=== PATIENT | female | born 1950 | race Caucasian/White ===

== ENCOUNTER 2021-04-04 15:15 | Emergency (ER) | payer MEDICARE, BC ==
[2021-04-04] MEDS ORDERED: Sodium Chloride 0.9% 10 ML Syringe FLUSH PRN (15:29)
--- NOTE | 2021-04-04 16:02 | CR ---
Chest: Portable view of the chest was obtained. Comparison: No prior chest imaging is available. Slight increased density is seen within both upper lungs. Uncertain if this is due to actual parenchymal change or is related to technique. Lungs otherwise are clear. Heart size and mediastinum are normal. Slight degenerative change is seen within the spine. Impression: 1. Questionable density within both upper lungs versus artifact from technique. 2. Portable chest x-ray shows nothing else acute. Diagnostic code #2
--- NOTE | 2021-04-04 16:24 | EDM.PDOC ---
ED HPI GENERAL MEDICAL PROBLEM - General Chief Complaint: Syncope Stated Complaint: NAUSEA DIZZY Time Seen by Provider: 04/04/21 15:27 Source of Information: Reports: Patient, Family History Limitations: Reports: No Limitations - History of Present Illness INITIAL COMMENTS - FREE TEXT/NARRATIVE: 70-year-old female presents the emergency department today with complaints of decreased appetite, nausea, increased fatigue and dizziness that started about a week and a half ago. Patient states that yesterday, however, she was standing in the kitchen after she had just woken up and had a syncopal episode. Her was there to witness and she denies hitting her head. She then again this morning shortly after woke up had a similar incident in the kitchen when standing by the counter. She denies any chest pain or diaphoresis associated with the syncopal episodes. Patient also states that she did have an episode of diarrhea stool today. She denies fever however has had the chills. She denies shortness of breath however states she does have a cough. However she makes note that cough is due to "allergies". She denies any abdominal pain or urinary symptoms. Patient does not take any prescription medications and does not have a history of smoking. She has not had her Covid vaccine. O2 saturations are 92% on room air. - Related Data Allergies Allergy/AdvReac Type Severity Reaction Status Date / Time No Known Allergies Allergy Verified 04/04/21 15:30 Past Medical History HEENT History: Reports: Impaired Vision Other HEENT History: wears eyeglasses. [employer]CH[employer]ICIAN History: Reports: Musculoskeletal History: Reports: Fracture - Infectious Disease History Infectious Disease History: Reports: Chicken Pox, Mumps - Past Surgical History Other Musculoskeletal Surgeries/Procedures:: fusion of C6, C7. Social & Family History - Tobacco Use Tobacco Use Status *Q: Never Tobacco User Second Hand Smoke Exposure: No - Caffeine Use Caffeine Use: Reports: Coffee - Alcohol Use Days Per Week of Alcohol Use: 3 Number of Drinks Per Day: 1 Total Drinks Per Week: 3 - Recreational Drug Use Recreational Drug Use: No ED ROS GENERAL - Review of Systems Review Of Systems: Comprehensive ROS is negative, except as noted in HPI. - Physical Exam Exam: See Below Exam Limited By: No Limitations General Appearance: Alert, WD/WN, No Apparent Distress Ears: Normal External Exam, Hearing Grossly Normal Nose: Normal Inspection Throat/Mouth: Normal Inspection, Normal Lips, Normal Voice, No Airway Compromise Head Exam: Atraumatic, Normocephalic Neck: Normal Inspection, Supple Respiratory/Chest: No Respiratory Distress, No Accessory Muscle Use, Chest Non- Tender (Lateral upper lobes), Crackles Cardiovascular: Normal Peripheral Pulses, Regular Rate, Rhythm, No Edema GI/Abdominal: Normal Bowel Sounds, Soft, Non-Tender, No Distention (Female) Exam: Deferred Rectal (Female) Exam: Deferred Neuro Exam (Abbreviated): Alert, Oriented, Normal Cognition Back Exam: Normal Inspection Extremities: Normal Inspection, Normal Range of Motion, Non-Tender, No Pedal Edema, Normal Capillary Refill Psychiatric: Normal Affect, Normal Mood Skin Exam: Warm, Dry, Intact, Normal Color, No Rash #1 Interpretation EKG Date: 04/04/21 Time: 16:34 Rhythm: NSR Rate (Beats/Min): 81 Dawson: Normal P-Wave: Present QRS: Normal ST-T: Normal QT: Normal Comparison: NA - No Prior EKG EKG Interpretation Comments: Per Dr. Diaz interpretation: Sinus rhythm at 81 bpm Course - Vital Signs Text/Narrative:: As stated above, patient presents with syncopal episode x2, decreased appetite, nausea, diarrhea, generalized fatigue and chills. Physical exam reveals crackles noted to bilateral upper lobes. Remainder of exam is unremarkable. Patient's O2 saturations were 92% on room air at the time of triage. Will obtain lab studies, chest x-ray, EKG, urinalysis with micro and culture if indicated as well as a Covid swab. Last Recorded V/S: Last Vital Signs Temp 99.1 F 04/04/21 18:30 Pulse 86 04/04/21 18:30 Resp 14 04/04/21 18:30 BP 127/63 04/04/21 18:30 Pulse Ox 90 L 04/04/21 18:30 - Orders/Labs/Meds Orders: Active Orders 24 hr Category Date Time Status Vital Signs [RC] Q15M Care 04/04/21 17:17 Active EPINEPHrine [Adrenalin] Med 04/04/21 17:17 Active 0.3 mg IM ASDIRECTED PRN Famotidine [Pepcid] Med 04/04/21 17:17 Active 20 mg IVPUSH ASDIRECTED PRN Sodium Chloride 0.9% [Saline Flush] Med 04/04/21 15:29 Active 10 ml FLUSH ASDIRECTED PRN Sodium Chloride 0.9% [Saline Flush] Med 04/04/21 17:30 Active 30 ml FLUSH ASDIRECTED diphenhydrAMINE [Benadryl] Med 04/04/21 17:17 Active 50 mg IVPUSH ASDIRECTED PRN methylPREDNISolone Sod Succ [Solu-MEDROL] Med 04/04/21 17:17 Active 125 mg IVPUSH ASDIRECTED PRN Saline Lock Insert [OM.PC] Stat Oth 04/04/21 15:29 Ordered Medication Orders Diphenhydramine HCl (Diphenhydramine 50 Mg/Ml Sdv) 50 mg IVPUSH ASDIRECTED PRN PRN Reason: hypersensitivity reaction Epinephrine HCl (Epinephrine 1 Mg/Ml Sdv) 0.3 mg IM ASDIRECTED PRN PRN Reason: hypersensitivity reaction Famotidine (Famotidine 20 Mg/2 Ml Sdv) 20 mg IVPUSH ASDIRECTED PRN PRN Reason: hypersensitivity reaction Methylprednisolone Sodium Succinate (Methylprednisolone Sodium Succinate 125 Mg/2 Ml Sdv) 125 mg IVPUSH ASDIRECTED PRN PRN Reason: hypersensitivity reaction Sodium Chloride (Sodium Chloride 0.9% 10 Ml Syringe) 10 ml FLUSH ASDIRECTED PRN PRN Reason: Keep Vein Open Last Admin: 04/04/21 16:13 Dose: 10 ml Documented by: MERON Sodium Chloride (Sodium Chloride 0.9% 10 Ml Syringe) 30 ml FLUSH ASDIRECTED RAMIN Labs: Laboratory Tests 04/04/21 04/04/21 04/04/21 Range/Units 15:40 15:50 15:50 WBC 3.76 L (3.98-10.04) K/mm3 RBC 4.93 (3.98-5.22) M/mm3 Hgb 14.6 (11.2-15.7) gm/dl Hct 42.4 (34.1-44.9) % MCV 86.0 (79.4-94.8) fl MCH 29.6 (25.6-32.2) pg MCHC 34.4 (32.2-35.5) g/dl RDW Std Deviation 38.9 (36.4-46.3) fL Plt Count 160 L (182-369) K/mm3 MPV 11.1 (9.4-12.3) fl Neut % (Auto) 69.3 (34.0-71.1) % Lymph % (Auto) 16.5 L (19.3-51.7) % Ware % (Auto) 13.6 H (4.7-12.5) % Eos % (Auto) 0 L (0.7-5.8) Baso % (Auto) 0.3 (0.1-1.2) % Neut # (Auto) 2.61 (1.56-6.13) K/mm3 Lymph # (Auto) 0.62 L (1.18-3.74) K/mm3 Ware # (Auto) 0.51 H (0.24-0.36) K/mm3 Eos # (Auto) 0.00 L (0.04-0.36) K/mm3 Baso # (Auto) 0.01 (0.01-0.08) K/mm3 D-Dimer, Quantitative (0.19-0.50) mg/L Sodium 128 L (136-145) mEq/L Potassium 4.5 (3.5-5.1) mEq/L Chloride 92 L (98-107) mEq/L Carbon Dioxide 26 (21-32) mEq/L Anion Gap 14.5 (5-15) BUN 14 (7-18) mg/dL Creatinine 1.0 (0.55-1.02) mg/dL Est Cr Clr Drug Dosing 45.20 mL/min Estimated GFR (MDRD) 55 (>60) mL/min BUN/Creatinine Ratio 14.0 (14-18) Glucose 107 H (70-99) mg/dL Calcium 8.5 (8.5-10.1) mg/dL Magnesium 2.0 (1.8-2.4) mg/dL Total Bilirubin 0.5 (0.2-1.0) mg/dL AST 40 H (15-37) U/L ALT 49 (14-59) U/L Alkaline Phosphatase 60 (46-116) U/L Troponin I < 0.017 (0.00-0.056) ng/mL C-Reactive Protein 1.4 H* (<1.0) mg/dL NT-Pro-B Natriuret Pep (0-125) pg/mL Total Protein 7.5 (6.4-8.2) g/dl Albumin 3.3 L (3.4-5.0) g/dl Globulin 4.2 gm/dL Albumin/Globulin Ratio 0.8 L (1-2) TSH 3rd Generation 2.562 (0.358-3.74) uIU/mL Urine Color (Yellow) Urine Appearance (Clear) Urine pH (5.0-8.0) Ur Specific [place] (1.005-1.030) Urine Protein (Negative) Urine Glucose (UA) (Negative) Urine Ketones (Negative) Urine Occult Blood (Negative) Urine Nitrite (Negative) Urine Bilirubin (Negative) Urine Urobilinogen (0.2-1.0) Ur Leukocyte Esterase (Negative) Urine RBC (0-5) /hpf Urine WBC (0-5) /hpf Ur Squamous Epith Cells (0-5) /hpf Urine Bacteria (FEW) /hpf Urine Mucus (FEW) /hpf SARS-CoV-2 RNA (SHIRA) Positive H (NEGATIVE) 04/04/21 04/04/21 04/04/21 Range/Units 15:50 15:50 16:23 WBC (3.98-10.04) K/mm3 RBC (3.98-5.22) M/mm3 Hgb (11.2-15.7) gm/dl Hct (34.1-44.9) % MCV (79.4-94.8) fl MCH (25.6-32.2) pg MCHC (32.2-35.5) g/dl RDW Std Deviation (36.4-46.3) fL Plt Count (182-369) K/mm3 MPV (9.4-12.3) fl Neut % (Auto) (34.0-71.1) % Lymph % (Auto) (19.3-51.7) % Ware % (Auto) (4.7-12.5) % Eos % (Auto) (0.7-5.8) Baso % (Auto) (0.1-1.2) % Neut # (Auto) (1.56-6.13) K/mm3 Lymph # (Auto) (1.18-3.74) K/mm3 Ware # (Auto) (0.24-0.36) K/mm3 Eos # (Auto) (0.04-0.36) K/mm3 Baso # (Auto) (0.01-0.08) K/mm3 D-Dimer, Quantitative 0.92 H (0.19-0.50) mg/L Sodium (136-145) mEq/L Potassium (3.5-5.1) mEq/L Chloride (98-107) mEq/L Carbon Dioxide (21-32) mEq/L Anion Gap (5-15) BUN (7-18) mg/dL Creatinine (0.55-1.02) mg/dL Est Cr Clr Drug Dosing mL/min Estimated GFR (MDRD) (>60) mL/min BUN/Creatinine Ratio (14-18) Glucose (70-99) mg/dL Calcium (8.5-10.1) mg/dL Magnesium (1.8-2.4) mg/dL Total Bilirubin (0.2-1.0) mg/dL AST (15-37) U/L ALT (14-59) U/L Alkaline Phosphatase (46-116) U/L Troponin I (0.00-0.056) ng/mL C-Reactive Protein (<1.0) mg/dL NT-Pro-B Natriuret Pep 54 (0-125) pg/mL Total Protein (6.4-8.2) g/dl Albumin (3.4-5.0) g/dl Globulin gm/dL Albumin/Globulin Ratio (1-2) TSH 3rd Generation (0.358-3.74) uIU/mL Urine Color Yellow (Yellow) Urine Appearance Slt cloudy H (Clear) Urine pH 7.0 (5.0-8.0) Ur Specific [place] 1.020 (1.005-1.030) Urine Protein 2+ H (Negative) Urine Glucose (UA) Negative (Negative) Urine Ketones Trace H (Negative) Urine Occult Blood Trace-intact H (Negative) Urine Nitrite Negative (Negative) Urine Bilirubin Negative (Negative) Urine Urobilinogen 0.2 (0.2-1.0) Ur Leukocyte Esterase Negative (Negative) Urine RBC 0-5 (0-5) /hpf Urine WBC 0-5 (0-5) /hpf Ur Squamous Epith Cells 5-10 H (0-5) /hpf Urine Bacteria Many H (FEW) /hpf Urine Mucus Few (FEW) /hpf SARS-CoV-2 RNA (SHIRA) (NEGATIVE) Meds: Medications Generic Name Dose Route Start Last Admin Trade Name Freq PRN Reason Stop Dose Admin Diphenhydramine HCl 50 mg 04/04/21 17:17 Diphenhydramine 50 Mg/Ml Sdv IVPUSH ASDIRECTED PRN hypersensitivity reaction Epinephrine HCl 0.3 mg 04/04/21 17:17 Epinephrine 1 Mg/Ml Sdv IM ASDIRECTED PRN hypersensitivity reaction Famotidine 20 mg 04/04/21 17:17 Famotidine 20 Mg/2 Ml Sdv IVPUSH ASDIRECTED PRN hypersensitivity reaction Methylprednisolone Sodium Succinate 125 mg 04/04/21 17:17 Methylprednisolone Sodium Succinate 125 Mg/2 Ml Sdv IVPUSH ASDIRECTED PRN hypersensitivity reaction Sodium Chloride 10 ml 04/04/21 15:29 04/04/21 16:13 Sodium Chloride 0.9% 10 Ml Syringe FLUSH 10 ml ASDIRECTED PRN Administration Keep Vein Open Sodium Chloride 30 ml 04/04/21 17:30 Sodium Chloride 0.9% 10 Ml Syringe FLUSH ASDIRECTED RAMIN Discontinued Medications Generic Name Dose Route Start Last Admin Trade Name Magedq PRN Reason Stop Dose Admin CASIRIVIMAB/IMDEVIMAB 10 ml/ 110 mls @ 220 mls/hr 04/04/21 17:17 04/04/21 18:30 Sodium Chloride IV 04/04/21 17:46 220 mls/hr ONETIME ONE Administration Sodium Chloride 500 mls @ 500 mls/hr 04/04/21 17:29 04/04/21 17:40 Normal Saline IV 04/04/21 18:28 500 mls/hr .BOLUS ONE Administration - Re-Assessments/Exams Free Text/Narrative Re-Assessment/Exam: 04/04/21 16:29 Radiologist impression portable view of the chest: Slight increased density is seen within both upper lungs. Uncertain if this is due to actual parenchymal change or is related to technique. Lungs otherwise are clear. Heart size and mediastinum are normal. Slight degenerative changes seen within the spine. Impression: 1. Questionable density within both upper lungs versus artifact from technique. 2. Portable chest x-ray shows nothing else acute. 04/04/21 17:28 Hematology reveals a WBC of 3.76, hemoglobin 14.6, hematocrit 42.4, platelet count 160 D-dimer 0.92 Chemistry reveals a sodium of 128, potassium 4.5, chloride 92, anion gap 14.5, BUN 14, creatinine 1.0, glucose 107 magnesium 2.0, total bilirubin 0.5, AST 40, ALT 49, alk phos 60, troponin less than 0.017, C-reactive protein 1.4 Urinalysis reveals 2+ protein, trace ketones, trace of intact blood, nitrite negative, leukocyte Estrace negative Patient is Covid positive Discussed the results with the patient. I will order to receive a 500 mL normal saline bolus I spoke with the patient to provide information about Regeneron for herself. I offered her the fax sheet for patients and caregivers for Regeneron to read and review. I stated the therapy has been approved by an emergency use authori zation process and has not fully been FDA reviewed or approved. I shared the potential risks from the therapy including risks/adverse reactions. I discussed there are other potential treatment options that are currently not FDA approved to treat COVID-19. Offered opportunity ask questions and all questions were answered. Patient voiced understanding and agreed to proceed with treatment for herself. 04/04/21 19:51 Patient did receive antibody treatment and was monitored for 1 hour after. She will be discharged home. Departure - Departure Time of Disposition: 19:51 Disposition: Home, Self-Care 01 Condition: Good Clinical Impression: COVID-19 - Discharge Information Instructions: 10 Things You Can Do to Manage Your COVID-19 Symptoms at Home - [facility] (10/29/2020), COVID-19: Quarantine vs. Isolation - [facility] (04/01/2020) Referrals: PCP,None [Primary Care Provider] - Forms: ED Department Discharge Additional Instructions: You were seen in the emergency department today for evaluation from fainting episodes and not feeling well for approximately the past week and a half. Full cardiac work-up was completed as well as Covid testing. Cardiac work-up was negative however you did test positive for Covid. Your sodium levels were slightly low likely due to not eating and drinking enough you did receive some IV fluids. You also did receive antibody treatment. Likely will start to feel better in the next day or so. Until that time, recommend that you go home and get plenty of rest. Drink plenty of fluids to stay hydrated such as Gatorade or Powerade to replenish your electrolytes in your body. Eat small frequent meals if possible. May also drink protein supplements to be sure you are getting enough calories in. Suspect that fainting episode is likely due to dehydration as it occurred the last couple of mornings shortly after waking and not having anything to eat or drink. Move very slowly with position changes. Sepsis Event Note (ED) - Evaluation Sepsis Screening Result: No Definite Risk - Focused Exam Vital Signs: Vital Signs Temp Pulse Resp BP Pulse Ox 04/04/21 18:30 99.1 F 86 14 127/63 90 L 04/04/21 15:20 98.2 F 88 24 H 145/72 H 97 - My Orders Last 24 Hours: My Active Orders 04/04/21 15:29 Sodium Chloride 0.9% [Saline Flush] 10 ml FLUSH ASDIRECTED PRN Saline Lock Insert [OM.PC] Stat 04/04/21 17:17 Vital Signs [RC] Q15M EPINEPHrine [Adrenalin] 0.3 mg IM ASDIRECTED PRN Famotidine [Pepcid] 20 mg IVPUSH ASDIRECTED PRN diphenhydrAMINE [Benadryl] 50 mg IVPUSH ASDIRECTED PRN methylPREDNISolone Sod Succ [Solu-MEDROL] 125 mg IVPUSH ASDIRECTED PRN 04/04/21 17:30 Sodium Chloride 0.9% [Saline Flush] 30 ml FLUSH ASDIRECTED - Assessment/Plan Last 24 Hours: My Active Orders 04/04/21 15:29 Sodium Chloride 0.9% [Saline Flush] 10 ml FLUSH ASDIRECTED PRN Saline Lock Insert [OM.PC] Stat 04/04/21 17:17 Vital Signs [RC] Q15M EPINEPHrine [Adrenalin] 0.3 mg IM ASDIRECTED PRN Famotidine [Pepcid] 20 mg IVPUSH ASDIRECTED PRN diphenhydrAMINE [Benadryl] 50 mg IVPUSH ASDIRECTED PRN methylPREDNISolone Sod Succ [Solu-MEDROL] 125 mg IVPUSH ASDIRECTED PRN 04/04/21 17:30 Sodium Chloride 0.9% [Saline Flush] 30 ml FLUSH ASDIRECTED
[2021-04-04] MEDS ORDERED: diphenhydrAMINE 50 MG/ML SDV IVPUSH PRN (17:17)
[2021-04-04] MEDS ORDERED: EPINEPHrine 1 MG/ML SDV IM PRN (17:17)
[2021-04-04] MEDS ORDERED: Famotidine 20 MG/2 ML SDV IVPUSH PRN (17:17)
[2021-04-04] MEDS ORDERED: methylPREDNISolone Sodium Succinate 125 MG/2 ML SDV IVPUSH PRN (17:17)
[2021-04-04] MEDS ORDERED: Sodium Chloride 0.9% 500 ML IV ONE (17:29)
[2021-04-04] MEDS ORDERED: Sodium Chloride 0.9% 10 ML Syringe FLUSH SCH (17:30)
== END 2021-04-04 20:28 | disposition home or self-care (01) ==
LOC: JD.ED 15:15
DX: U07.1 COVID-19 (principal)
CPT/HCPCS: 36415; 71045; 80053; 81001; 83735; 83880; 84443; 84484; 85025; 85379; 86140; 93005; 99284; J7030; M0243; Q0243; U0002; 93010; 99285